=== PATIENT | male | born 1945 | race Caucasian/White ===

== ENCOUNTER → 2019-12-01 | Outpatient (CLI) | payer OTHER, MEDICARE ==
[~2019-12-01] MED LIST: CARAFATE 11 GM/10 M1 PO; MEDROLDOSEPACK PO; NEPHROCAPS SOFT1 CAP PO; PROTONIX 20 MG20 MG PO; SINGULAIR4 MG PO; SYMBICORT80 MCG/4.1 INH; ZPAK PO
== END ==
LOC: RAD 12:11
DX: J98.4 Other disorders of lung (principal)

== ENCOUNTER → 2020-03-19 | Outpatient (CLI) | payer OTHER, MEDICARE ==
[2020-03-19 09:53] LABS: CREATININE 1.4 mg/dL (0.7-1.3)
== END ==
LOC: LAB 09:18
PROVIDERS: ATTEND Family Medicine
DX: K57.30 Diverticulosis of large intestine without perforation or abscess without bleeding (principal); N20.0 Calculus of kidney; N32.89 Other specified disorders of bladder; M48.07 Spinal stenosis, lumbosacral region

== ENCOUNTER → 2020-04-09 | Outpatient (CLI) | payer OTHER, MEDICARE ==
[~2020-04-09] VITALS: Ht 170.2 cm; Wt 74.8 kg
[~2020-04-09] MED LIST changes: +ALLOPURINOL 30300 M1 PO; +ASPIR 8181 M1 PO; +CO-ENZYME Q-1010 MG PO; +CRANBERRY450 M2 PO; +FISH OIL 1,0001 EAC9 PO; +GLUCOSAMINE &1 EACH PO; +IPRAT-ALBUT 0.5-3 ML INH; +LIPITOR10 MG PO; +NORVASC 2.5 MG2.5 M1 PO; +PROTONIX 20 MG20 M1 PO; +TRELEGY ELLIPT1 EACH INH
== END ==
LOC: GI 04-06 10:53
PROVIDERS: ATTEND Internal Medicine Gastroenterology
DX: R10.9 Unspecified abdominal pain (principal); K64.8 Other hemorrhoids; I12.9 Hypertensive chronic kidney disease with stage 1 through stage 4 chronic kidney disease, or unspecified chronic kidney disease; N18.3 Chronic kidney disease, stage 3 (moderate); E78.5 Hyperlipidemia, unspecified; K21.9 Gastro-esophageal reflux disease without esophagitis; M10.9 Gout, unspecified; J44.9 Chronic obstructive pulmonary disease, unspecified; Z98.890 Other specified postprocedural states; Z79.899 Other long term (current) drug therapy; Z98.41 Cataract extraction status, right eye; Z98.42 Cataract extraction status, left eye; Z87.891 Personal history of nicotine dependence; Z87.19 Personal history of other diseases of the digestive system
CPT/HCPCS: 62110; 62900